=== PATIENT | male | born 1980 | race Caucasian/White ===

== ENCOUNTER 2022-07-23 12:19 | Emergency (ER) | payer OTHER ==
[~2022-07-23] VITALS: Ht 180.3 cm; Wt 108.9 kg
[2022-07-23 12:47] VITALS: BP 152/84
[2022-07-23] MEDS ORDERED: LORazepam 2 MG/ML VIAL IM ONE (13:05)
[2022-07-23 13:27] LABS: BASOPHILS % (AUTO) 0.3 % (0.0-2.0); EOSINOPHILS # (AUTO) 0.1 K/uL (0-0.4); EOSINOPHILS % (AUTO) 0.7 % (0.0-4.0); HEMATOCRIT 45.6 % (36-52); HEMOGLOBIN 15.3 g/dL (12.0-18.0); LYMPHOCYTES # (AUTO) 2.3 K/uL (2.0-11.5); LYMPHOCYTES % (AUTO) 22.7 % (20.5-51.1); MEAN CORPUSCULAR HEMOGLOBIN 29 pg (27-31); MEAN CORPUSCULAR HGB CONC 34 g/dL (33-37); MEAN CORPUSCULAR VOLUME 87.4 fL (80-94); MONOCYTES # (AUTO) 0.6 K/uL (0.8-1.0); MONOCYTES % (AUTO) 5.5 % (1.7-9.3); NEUTROPHILS # (AUTO) 7.1 K/uL (1.8-7.7); NEUTROPHILS % (AUTO) 70.8 % (42.2-75.2); PLATELET COUNT (AUTO) 278 K/uL (140-450); RED BLOOD CELL COUNT(AUTO) 5.21 MIL/uL (4.20-6.10); RED CELL DISTRIBUTION WIDTH 13.5 % (11.6-13.7); WHITE BLOOD COUNT (AUTO) 10.1 K/uL (4.8-10.8)
[2022-07-23 13:34] LABS: ALBUMIN 4.2 g/dL (3.4-5.0); ANION GAP 10.9 (8-16); ASPARTATE AMINOTRANSFERASE 20 U/L (15-37); CARBON DIOXIDE 29.8 mmol/L (21-32); CHLORIDE 103 mmol/L (98-107); GFR ARICAN-AMERICAN 106 mL/min (>90); GLUCOSE 91 mg/dL (74-106); POTASSIUM 4.7 mmol/L (3.5-5.1); SODIUM SERUM 139 mmol/L (136-145); TOTAL BILIRUBIN 0.4 mg/dL (0.0-1.0); UREA NITROGEN, BLOOD 13 mg/dL (7-18)
--- NOTE | 2022-07-23 14:53 | NUR ---
called in lobby and outside, no answer at this time
--- NOTE | 2022-07-23 16:00 | NUR ---
42 y/o male bib self, c/o heart palpitations since this morning, states he has been feeling like he has been having "anxiety/panic attack", states it feels the same in the past. a&ox4, ambulates with steady gait. pmh: anxiety
[2022-07-23 16:14] VITALS: BP 152/84
--- NOTE | 2022-07-23 16:14 | NUR ---
Patient discharged with v/s stable. Written and verbal after care instructions given and explained. Patient verbalized understanding. Ambulatory with steady gait. All questions addressed prior to discharge. Advised to follow up with PMD.
== END 2022-07-23 16:14 | disposition home or self-care (01) ==
LOC: MED 12:19
DX: R00.2 Palpitations (principal)
CPT/HCPCS: 36415; 71045; 80053; 84484; 85025; 93005; 96372; 99285; J2060

== ENCOUNTER 2022-09-17 21:47 | Emergency (ER) | payer OTHER ==
[~2022-09-17] VITALS: Ht 182.9 cm; Wt 136.1 kg
[2022-09-17 22:06] VITALS: BP 149/90
--- NOTE | 2022-09-17 22:09 | NUR ---
TO LOBBY A/W BED AMBULATORY
[2022-09-17 22:38] LABS: BASOPHILS % (AUTO) 0.6 % (0.0-2.0); EOSINOPHILS # (AUTO) 0.2 K/uL (0-0.4); EOSINOPHILS % (AUTO) 2.4 % (0.0-4.0); HEMATOCRIT 43.5 % (36-52); HEMOGLOBIN 14.7 g/dL (12.0-18.0); LYMPHOCYTES # (AUTO) 3.2 K/uL (2.0-11.5); MEAN CORPUSCULAR HEMOGLOBIN 29 pg (27-31); MEAN CORPUSCULAR HGB CONC 34 g/dL (33-37); MEAN CORPUSCULAR VOLUME 86.9 fL (80-94); MONOCYTES # (AUTO) 0.6 K/uL (0.8-1.0); MONOCYTES % (AUTO) 7.2 % (1.7-9.3); NEUTROPHILS # (AUTO) 4.4 K/uL (1.8-7.7); NEUTROPHILS % (AUTO) 51.8 % (42.2-75.2); PLATELET COUNT (AUTO) 273 K/uL (140-450); RED CELL DISTRIBUTION WIDTH 13.2 % (11.6-13.7); WHITE BLOOD COUNT (AUTO) 8.4 K/uL (4.8-10.8)
[2022-09-17 22:59] LABS: ALBUMIN 4.3 g/dL (3.4-5.0); ANION GAP 13.7 (8-16); CARBON DIOXIDE 29.1 mmol/L (21-32); POTASSIUM 3.8 mmol/L (3.5-5.1); TOTAL BILIRUBIN 0.2 mg/dL (0.0-1.0)
--- NOTE | 2022-09-17 23:38 | NUR ---
PT TAKEN TO BED 2
--- NOTE | 2022-09-17 23:44 | NUR ---
Dr. Urban bedside for pt eval
--- NOTE | 2022-09-17 23:48 | NUR ---
Pt BIB family to ED C/O upper abdominal pain. Pt reports symptoms on and off for the past month worsened after eating. Pt was concerned as he does have family hx of stomach cancers. Denies use of caffeine but does eat a lot of spicy food. No radiation of pain. Denies any chest pain, shortness of breath, lower abdominal pain, blood in stool or urine. Reports symptoms currently 2 out of 10 pain level
[2022-09-17] MEDS ORDERED: DICYCLOMINE HCL LIQUID 20 MG, ALUMINUM HYD/MAG/SIMETHICONE 30 ML, LIDOCAINE VISCOUS 2% ... PO ONE ×3 (23:50)
[2022-09-17] MEDS ORDERED: DICYCLOMINE HCL LIQUID 10 MG/5 ML UDC ONE (23:52)
[2022-09-17] MEDS ORDERED: ALUMINUM HYD/MAG/SIMETHICONE 30 ML UDC ONE (23:52)
[2022-09-17] MEDS ORDERED: MAG-27 PO (23:55)
[2022-09-17] MEDS ORDERED: OMEP20EC11 PO (23:55)
--- NOTE | 2022-09-18 | NUR ---
Dr. Urban bedside for portable US study, well tolerated
[2022-09-18 00:25] VITALS: BP 142/87
== END 2022-09-18 00:25 | disposition home or self-care (01) ==
LOC: MED 21:47
DX: R10.10 Upper abdominal pain, unspecified (principal)
CPT/HCPCS: 36415; 80053; 83690; 85025; 99284

== ENCOUNTER 2023-04-24 03:10 | Emergency (ER) | payer OTHER ==
[~2023-04-24] VITALS: Ht 182.9 cm; Wt 122.5 kg
[~2023-04-24 03:10] MED LIST: MAG-27 PO; OMEP20EC11 PO
[2023-04-24 03:28] VITALS: BP 147/102; PULSE 69; RESP 14; TEMP 97.6; O2SAT 95
[2023-04-24] MEDS ORDERED: IBUPROFEN 600 MG TAB PO ONE (03:35)
[2023-04-24] MEDS ORDERED: NAPR-54 PO (03:55)
[2023-04-24] MEDS ORDERED: PENI500T20 PO (03:55)
[2023-04-24 04:00] VITALS: BP 147/102; PULSE 69; RESP 14; TEMP 97.6; O2SAT 95
== END 2023-04-24 04:00 | disposition home or self-care (01) ==
LOC: MED 03:10
DX: K08.89 Other specified disorders of teeth and supporting structures (principal); F15.90 Other stimulant use, unspecified, uncomplicated; Z79.899 Other long term (current) drug therapy
CPT/HCPCS: 99283

== ENCOUNTER 2024-02-16 06:15 | Emergency (ER) | payer OTHER ==
[~2024-02-16] VITALS: Ht 172.7 cm; Wt 127.0 kg
[~2024-02-16 06:15] MED LIST changes: +NAPR-337 PO; +PENI500T20 PO
[2024-02-16 06:34] VITALS: BP 151/84; PULSE 78; RESP 18; TEMP 97.3; O2SAT 98
[2024-02-16 07:50] VITALS: O2SAT 98
[2024-02-16 08:30] VITALS: BP 144/82; PULSE 77; RESP 16; TEMP 98; O2SAT 99
== END 2024-02-16 08:30 | disposition home or self-care (01) ==
LOC: MED 06:15
DX: F41.9 Anxiety disorder, unspecified (principal); R06.02 Shortness of breath; R05.9 Cough, unspecified; R07.89 Other chest pain; R03.0 Elevated blood-pressure reading, without diagnosis of hypertension; Z79.1 Long term (current) use of non-steroidal anti-inflammatories (NSAID); Z79.2 Long term (current) use of antibiotics; Z79.899 Other long term (current) drug therapy
CPT/HCPCS: 71046; 99283

== ENCOUNTER 2024-03-08 04:45 | Emergency (ER) | payer OTHER ==
[~2024-03-08] VITALS: Ht 182.9 cm; Wt 133.8 kg
[2024-03-08 05:02] VITALS: BP 164/91; PULSE 95; RESP 14; TEMP 99.8; O2SAT 99
[2024-03-08 05:25] VITALS: BP 164/91; PULSE 95; RESP 14; TEMP 99.8; O2SAT 99
[2024-03-08] MEDS ORDERED: NIRM1TAB9 PO (06:36)
[2024-03-08] MEDS: ACETAMINOPHEN 325 MG TAB PO ONE (06:47)
== END 2024-03-08 06:46 | disposition home or self-care (01) ==
LOC: MED 04:45
DX: U07.1 COVID-19 (principal); J06.9 Acute upper respiratory infection, unspecified; B97.89 Other viral agents as the cause of diseases classified elsewhere; Z79.1 Long term (current) use of non-steroidal anti-inflammatories (NSAID); Z79.2 Long term (current) use of antibiotics; Z79.899 Other long term (current) drug therapy
CPT/HCPCS: 71045; 87426; 93005; 99285; Q0092